=== PATIENT | male | born 1980 | race Caucasian/White ===

== ENCOUNTER 2016-08-30 13:51 | Emergency (ER) | payer OTHER, MEDICAID ==
[~2016-08-30] VITALS: Ht 185.4 cm; Wt 150.3 kg
[2016-08-30 13:52] VITALS: BP 171/82
[2016-08-30] MEDS ORDERED: ZOLP10TA PO (14:32)
[2016-08-30] MEDS ORDERED: OXYcodone/APAP 5/325MG TABLET ONE (14:53)
[2016-08-30] MEDS ORDERED: IBUPROFEN 200 MG TABLET ONE (14:54)
[2016-08-30] MEDS ORDERED: IBUPROFEN 200 MG TABLET PO ONE (15:00)
[2016-08-30] MEDS ORDERED: OXYcodone/APAP 5/325MG TABLET PO ONE (15:00)
== END 2016-08-30 16:05 | disposition home or self-care (01) ==
LOC: ED 14:27
DX: M70.42 Prepatellar bursitis, left knee (principal); Y93.89 Activity, other specified; I10 Essential (primary) hypertension; F43.10 Post-traumatic stress disorder, unspecified; Z90.89 Acquired absence of other organs

== ENCOUNTER 2017-02-16 02:19 | Emergency (ER) | payer OTHER, MEDICAID ==
[~2017-02-16] VITALS: Ht 185.4 cm; Wt 132.9 kg
[~2017-02-16 02:19] MED LIST: ZOLP10TA PO
[2017-02-16 02:20] VITALS: BP 153/91
[2017-02-16] MEDS ORDERED: HYDROmorphone 1 MG/ML, 1ML ONE (03:15)
[2017-02-16] MEDS ORDERED: ONDANSETRON ODT 4 MG ONE (03:15)
[2017-02-16] MEDS ORDERED: HYDROmorphone 1 MG/ML, 1ML IM ONE (03:30)
[2017-02-16] MEDS ORDERED: ONDANSETRON ODT 4 MG PO ONE (03:30)
== END 2017-02-16 05:06 | disposition home or self-care (01) ==
LOC: ED 03:06
DX: S97.82XA Crushing injury of left foot, initial encounter (principal); W19.XXXA Unspecified fall, initial encounter; Y93.89 Activity, other specified; Y92.410 Unspecified street and highway as the place of occurrence of the external cause; Y99.8 Other external cause status
CPT/HCPCS: 99284